=== PATIENT | male | born 1970 | race African-American/Black ===

== ENCOUNTER 2020-12-05 15:01 | Emergency (ER) | payer BC, OTHER ==
[~2020-12-05] VITALS: Ht 170.2 cm; Wt 99.8 kg
[2020-12-05 16:29] VITALS: BP 131/75
== END 2020-12-05 16:30 | disposition home or self-care (01) ==
LOC: ER 15:01
DX: R51.9 Headache, unspecified (principal); M79.10 Myalgia, unspecified site; E11.9 Type 2 diabetes mellitus without complications; V43.52XA Car driver injured in collision with other type car in traffic accident, initial encounter; Y93.89 Activity, other specified; Y92.410 Unspecified street and highway as the place of occurrence of the external cause; Y99.8 Other external cause status
CPT/HCPCS: 70450; 72100; 72125